=== PATIENT | female | born 2000 | race Caucasian/White ===

== ENCOUNTER 2025-08-28 06:12 | Emergency (ER) | payer OTHER ==
[~2025-08-28] VITALS: Ht 160 cm; Wt 72.1 kg
[2025-08-28] MEDS ORDERED: VENL25 (06:42)
[2025-08-28] MEDS ORDERED: OxyCODONE 5 mg/Acetamin 325 mg TABLET PO ONE (07:45)
[2025-08-28] MEDS ORDERED: RX Prepack 6 Tabs Oxycodone 5mg UD ONE (07:45)
== END 2025-08-28 08:03 | disposition home or self-care (01) ==
LOC: ER 06:12
DX: S93.402A Sprain of unspecified ligament of left ankle, initial encounter (principal); Z59.89 Other problems related to housing and economic circumstances; X50.0XXA Overexertion from strenuous movement or load, initial encounter; F17.200 Nicotine dependence, unspecified, uncomplicated
CPT/HCPCS: 73610; 99283-25; A9270